=== PATIENT | male | born 1985 ===

== ENCOUNTER 2020-10-02 11:50 | Emergency (ER) | payer SELFPAY ==
[~2020-10-02] VITALS: Ht 185.4 cm; Wt 99.2 kg
[2020-10-02 11:52] VITALS: BP 160/86
--- NOTE | 2020-10-02 12:27 | NUR ---
ALL RESULTS ARE BACK AT THIS TIME. CHART UP FOR RECHECK.
== END 2020-10-02 13:10 | disposition home or self-care (01) ==
LOC: ED 13:04
DX: S63.521A Sprain of radiocarpal joint of right wrist, initial encounter (principal); X58.XXXA Exposure to other specified factors, initial encounter; Y93.89 Activity, other specified; Y92.59 Other trade areas as the place of occurrence of the external cause; Y99.8 Other external cause status
CPT/HCPCS: 99283